=== PATIENT | female | born 1970 | race Caucasian/White ===

== ENCOUNTER 2018-09-18 14:33 | Emergency (ER) | payer BC, SELFPAY ==
[2018-09-18] MEDS ORDERED: NA CHLORIDE 0.9% 1,000 ML ONE (15:31)
[2018-09-18] MEDS ORDERED: MORPHINE 4 MG/ML SYR ONE ×2 (15:31→16:18)
[2018-09-18] MEDS ORDERED: ONDANSETRON 4 MG/2 ML VIAL ONE (15:31)
[2018-09-18 16:02] LABS: Absolute Lymphocytes (CBC) 2.4 K/uL (0.7-4.9); Absolute Monocytes 0.6 K/uL (0.1-1.3); Absolute Neutrophil 5.5 K/uL (1.8-8.0); Basophils % 0.6 % (0-1.3); Eosinophils % 2.3 % (0-4.4); Hematocrit 47.1 % (36.0-45.0); Lymphocytes % 27.5 % (15.3-44.8); MPV 8.6 fL (7.6-11.3); Monocytes % 7.3 % (3.3-12.3); RBC Red Blood Cell Count 5.12 M/uL (3.86-4.86)
[2018-09-18] MEDS ORDERED: PROMETHAZINE 25 MG/ML VIAL ONE ×2 (16:20→17:16)
[2018-09-18] MEDS ORDERED: FENTANYL CITR 100 MCG/2 ML ONE (16:21)
[2018-09-18 16:24] LABS: ALT/SGPT 46 U/L (12-78); AST/SGOT 31 U/L (15-37); Albumin 4.4 g/dL (3.4-5.0); Alkaline Phosphatase 84 U/L (45-117); BUN Blood Urea Nitrogen 15 mg/dL (7-18); Bicarbonate 21 mmol/L (21-32); Bilirubin Direct < 0.1 mg/dL (0-0.2); Bilirubin Total 0.2 mg/dL (0.2-1.0); Glucose Level 121 mg/dL (74-106); Lipase 215 U/L (73-393); Potassium 4.1 mmol/L (3.5-5.1); Protein, Total 8.1 g/dL (6.4-8.2); Sodium Level 140 mmol/L (136-145)
[2018-09-18 17:10] LABS: Urine Specific Gravity >1.030 (1.005-1.030)
[2018-09-18 17:11] LABS: Urine Blood NEGATIVE (NEG); Urine Glucose NEGATIVE (NEG); Urine Protein TRACE (NEG)
--- NOTE | 2018-09-18 17:14 | RAD REPORT ---
EXAM DESCRIPTION: CTAbdomen Pelvis W Contrast - 09/18/2018 4:55 pm CLINICAL HISTORY: Abdominal pain. iv contrast only;Abd pain COMPARISON: <Comparisons> TECHNIQUE: Biphasic CT imaging of the abdomen and pelvis was performed with 100 ml non-ionic IV cont rast. All CT scans are performed using dose optimization technique as appropriate and may include automated exposure control or mA/KV adjustment according to patient size. FINDINGS: The lung bases are clear. Mild diffuse fatty liver. The spleen, pancreas, adrenal glands and kidneys are within normal limits. Benign left renal cysts. No bowel obstruction, free air, free fluid or abscess. Appendectomy. No evidence of significant lym phadenopathy. No suspicious bony findings. IMPRESSION: No acute intra-abdominal or pelvic finding.
[2018-09-18] MEDS ORDERED: FAMOTIDINE 20 MG/2 ML VIAL IV ONE (17:16)
--- NOTE | 2018-09-18 18:00 | ER ---
Nurse's Notes [facility] Name: Ines Crabtree Age: 48 yrs Sex: Female : 1970 Arrival Date: 09/18/2018 Time: 14:37 Bed 23 Private MD: Diagnosis: Generalized abdominal pain Presentation: 09/18 14:47 Presenting complaint: N/D, mid back pain, and abdominal pain 10/10 since this morning. hb Transition of care: patient was not received from another setting of care. Onset of symptoms was September 18, 2018. Risk Assessment: Do you want to hurt yourself or someone else? Patient reports no desire to harm self or others. Care prior to arrival: None. 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 - Social history:: Smoking status: Patient/guardian denies using tobacco. - Ebola Screening: : No symptoms or risks identified at this time. Screenin:10 Abuse screen: Denies threats or abuse. Denies injuries from another. Nutritional sg screening: No deficits noted. Tuberculosis screening: No symptoms or risk factors identified. Never had TB. Fall Risk None identified. Assessment: 14:55 General: Appears in no apparent distress. well groomed, well developed, well nourished, sg Behavior is calm, cooperative, appropriate for age. Pain: Complains of pain in left mid back, right mid back and epigastric area Pain currently is 10 out of 10 on a pain scale. at worst was 10 out of 10 on a pain scale. Quality of pain is described as aching, sharp, stabbing, throbbing. Neuro: Level of Consciousness is awake, alert, obeys commands, Oriented to person, place, time, situation, Acls Specialist are equal bilaterally Moves all extremities. Full function Gait is steady, Facial symmetry appears normal, Pupils are PERRLA. Cardiovascular: Capillary refill is brisk in bilateral fingers Patient's skin is warm and dry. Chest pain is denied. Respiratory: Airway is patent Respiratory effort is even, unlabored, Respiratory pattern is regular, symmetrical. GI: Abdomen is round non-distended, Bowel sounds present X 4 quads. Abd is soft X 4 quads Abdomen is tender to palpation in epigastric area, right upper quadrant and left upper quadrant. : No signs and/or symptoms were reported regarding the genitourinary system. EENT: No signs and/or symptoms were reported regarding the EENT system. Derm: Skin is pink, warm \\T\\ dry. Musculoskeletal: No signs and/or symptoms reported regarding the musculoskeletal system. 15:00 Reassessment: Patient appears in no apparent distress at this time. Patient is alert, sg oriented x 3, equal unlabored respirations, skin warm/dry/pink. Patient states symptoms have not improved. 16:01 Reassessment: Patient appears in no apparent distress at this time. reports back pain sg feels better, but continues to have abd pain, Ernie COMMERCIAL SINGER notified. 17:57 Reassessment: Patient appears in no apparent distress at this time. Patient and/or sg family updated on plan of care and expected duration. Pain level reassessed. pt reports pain has decreased from a 10/10 to a 9/10 at this time, pt reports having pain still in the epigastric area, requesting a list of specialist because " we arent from around here.". 18:50 Reassessment: Patient appears in no apparent distress at this time. Patient and/or sg family updated on plan of care and expected duration. Pain level reassessed. Patient is alert, oriented x 3, equal unlabored respirations, skin warm/dry/pink. Patient states feeling better. Patient states symptoms have improved. Vital Signs: 14:49 BP 224 / 113; Pulse 100; Resp 18; Temp 97.9; Pulse Ox 100% on R/A; Weight 99.79 kg; hb Height 5 ft. 8 in. (172.72 cm); Pain 10/10; 17:56 BP 184 / 109; Pulse 77; Resp 16; Temp 98.3(O); Pulse Ox 98% ; lt1 18:50 BP 172 / 88; Pulse 72; Resp 16; Temp 98.3; Pulse Ox 99% on R/A; Pain 4/10; sg 14:49 Body Mass Index 33.45 (99.79 kg, 172.72 cm) hb ED Course: 14:37 Patient arrived in ED. rg4 14:49 Triage completed. hb 14:49 Arm band placed on. hb 14:55 Mathew Syed, ABDIRAHMAN is Primary Nurse. sg 14:59 Torri Leo FNP-C [facility]. kb 14:59 Macario Eli MD is Attending Physician. kb 15:29 Initial lab(s) drawn, by me, sent to lab. Inserted saline lock: 22 gauge in left lt1 antecubital area, using aseptic technique. 16:53 CT completed. Patient tolerated procedure well. Patient moved back from CT. 16:57 CT Abd/Pelvis - W/Contrast In Process Unspecified. EDMS Administered Medications: 15:30 Drug: NS 0.9% 1000 ml Route: IV; Rate: 1000 ml; Site: left antecubital; sg 15:30 Drug: Zofran 4 mg Route: IVP; Site: left antecubital; sg 16:00 Follow up: Response: No adverse reaction; Nausea is increased sg 15:30 Drug: morphine 4 mg Route: IVP; Site: left antecubital; sg 16:00 Follow up: Response: No adverse reaction; Pain is unchanged, physician notified sg 16:05 CANCELLED (Other Intervention Used): morphine 4 mg IVP once kb 16:22 Drug: Phenergan 12.5 mg Route: IVP; Site: left antecubital; sg 17:00 Follow up: Response: No adverse reaction; Nausea unchanged sg 16:22 Drug: fentaNYL (PF) 50 mcg Route: IVP; Site: left antecubital; ss 17:08 Follow up: Response: No adverse reaction; Pain is unchanged, physician notified; sg Wheezing increased; pt appears more relaxed, and is not pacing in the room and is no longer [facility] 17:[facility] Drug: Pepcid 20 mg Route: IVP; Site: left antecubital; sg 19:04 Follow up: Response: No adverse reaction sg 17:00 Drug: Phenergan 12.5 mg Route: IVP; Site: left antecubital; sg 18:52 Follow up: Response: No adverse reaction; Nausea is decreased sg 17:56 Drug: TORadol 30 mg Route: IVP; Site: left antecubital; sg 18:23 Follow up: Response: No adverse reaction; Pain is decreased sg 17:56 Drug: Bentyl 20 mg Route: PO; sg 18:23 Follow up: Response: No adverse reaction sg 18:23 Drug: Demerol 25 mg Route: IVP; Site: left antecubital; sg 18:50 Follow up: Response: No adverse reaction; Pain is decreased sg Intake: Outcome: 17:59 Discharge ordered by MD. gagnon 18:59 Patient left the ED. bd Signatures: Dispatcher [employer] EDMS Torri Leo, RYLEY COMMERCIAL SINGER-Zayra Jason Steven, RN RN sg Jones, Susan sj Smirch, Shelby, RN RN ss Baxter, Heather, RN RN hb Garcia, Rubi 4 Celia Nguyễn 1 Corrections: (The following items were deleted from the chart) 16:54 16:28 Radiology exam delayed due to test not completed at this time. sj sj
--- NOTE | 2018-09-18 18:00 | EDPHYS ---
Physician Documentation [facility] Name: Ines Crabtree Age: 48 yrs Sex: Female : 1970 Arrival Date: 09/18/2018 Time: 14:37 Bed 23 Private MD: ED Physician Macario Eli HPI: 09/18 15:13 This 48 yrs old Female presents to ER via Ambulatory with complaints of kb Abdominal Pain, Flank Pain, Back Pain. 15:13 The patient presents with abdominal pain that is diffuse. Onset: The symptoms/episode kb began/occurred today. The symptoms radiate to both flanks. Associated signs and symptoms: Pertinent positives: nausea and vomiting, Pertinent negatives: fever. The symptoms are described as constant, sharp. Modifying factors: The symptoms are alleviated by nothing, the symptoms are aggravated by nothing. Severity of pain: At its worst the pain was moderate severe in the emergency department the pain is unchanged. The patient has not experienced similar symptoms in the past. The patient has not recently seen a physician. 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 - Social history:: Smoking status: Patient/guardian denies using tobacco. - Ebola Screening: : No symptoms or risks identified at this time. ROS: 15:12 Constitutional: Negative for fever, chills, and weight loss, Neck: Negative for injury, kb pain, and swelling, Cardiovascular: Negative for chest pain, palpitations, and edema, Respiratory: Negative for shortness of breath, cough, wheezing, and pleuritic chest pain, : Negative for injury, bleeding, discharge, and swelling, MS/Extremity: Negative for injury and deformity, Skin: Negative for injury, rash, and discoloration, Neuro: Negative for headache, weakness, numbness, tingling, and seizure. 15:12 Abdomen/GI: Positive for abdominal pain, nausea and vomiting, Negative for diarrhea, constipation. 15:12 Back: Positive for flank pain, bilaterally. Exam: 15:11 Constitutional: This is a well developed, well nourished patient who is awake, alert, kb and in no acute distress. Head/Face: Normocephalic, atraumatic. Chest/axilla: Normal chest wall appearance and motion. Nontender with no deformity. No lesions are appreciated. Cardiovascular: Regular rate and rhythm with a normal S1 and S2. No gallops, murmurs, or rubs. Normal PMI, no JVD. No pulse deficits. Respiratory: Lungs have equal breath sounds bilaterally, clear to auscultation and percussion. No rales, rhonchi or wheezes noted. No increased work of breathing, no retractions or nasal flaring. Skin: Warm, dry with normal turgor. Normal color with no rashes, no lesions, and no evidence of cellulitis. MS/ Extremity: Pulses equal, no cyanosis. Neurovascular intact. Full, normal range of motion. Neuro: Awake and alert, GCS 15, oriented to person, place, time, and situation. Cranial nerves II-XII grossly intact. Motor strength 5/5 in all extremities. Sensory grossly intact. Cerebellar exam normal. Normal gait. Vital Signs: 14:49 BP 224 / 113; Pulse 100; Resp 18; Temp 97.9; Pulse Ox 100% on R/A; Weight 99.79 kg; hb Height 5 ft. 8 in. (172.72 cm); Pain 10/10; 17:56 BP 184 / 109; Pulse 77; Resp 16; Temp 98.3(O); Pulse Ox 98% ; lt1 18:50 BP 172 / 88; Pulse 72; Resp 16; Temp 98.3; Pulse Ox 99% on R/A; Pain 4/10; sg 14:49 Body Mass Index 33.45 (99.79 kg, 172.72 cm) hb MDM: 14:59 Patient medically screened. kb 15:11 Data reviewed: vital signs, nurses notes. Data interpreted: Pulse oximetry: on room air kb is 100 %. Interpretation: normal. 17:58 Counseling: I had a detailed discussion with the patient and/or guardian regarding: the kb historical points, exam findings, and any diagnostic results supporting the discharge/admit diagnosis, lab results, radiology results, the need for outpatient follow up, a family practitioner, a melangeur operator, to return to the emergency department if symptoms worsen or persist or if there are any questions or concerns that arise at home. 09/18 15:09 Order name: Basic Metabolic Panel; Complete Time: 16:24 kb 09/18 15:09 Order name: CBC with Diff; Complete Time: 16:06 kb 09/18 15:09 Order name: Hepatic Function; Complete Time: 16:24 kb 09/18 15:09 Order name: Lipase; Complete Time: 16:24 kb 09/18 15:12 Order name: Urine Dipstick--Ancillary (enter results); Complete Time: 17:14 bd 09/18 15:12 Order name: Urine --Ancillary (enter results); Complete Time: 17:14 bd 09/18 16:25 Order name: CT Abd/Pelvis - W/Contrast; Complete Time: 17:16 kb 09/18 15:09 Order name: IV Saline Lock; Complete Time: 15:12 kb 09/18 15:09 Order name: Labs collected and sent; Complete Time: 15:12 kb 09/18 15:09 Order name: Urine Dipstick-Ancillary (obtain specimen); Complete Time: 15:30 kb Administered Medications: 15:30 Drug: NS 0.9% 1000 ml Route: IV; Rate: 1000 ml; Site: left antecubital; sg 15:30 Drug: Zofran 4 mg Route: IVP; Site: left antecubital; sg 16:00 Follow up: Response: No adverse reaction; Nausea is increased sg 15:30 Drug: morphine 4 mg Route: IVP; Site: left antecubital; sg 16:00 Follow up: Response: No adverse reaction; Pain is unchanged, physician notified sg 16:05 CANCELLED (Other Intervention Used): morphine 4 mg IVP once kb 16:22 Drug: Phenergan 12.5 mg Route: IVP; Site: left antecubital; sg 17:00 Follow up: Response: No adverse reaction; Nausea unchanged sg 16:22 Drug: fentaNYL (PF) 50 mcg Route: IVP; Site: left antecubital; ss 17:08 Follow up: Response: No adverse reaction; Pain is unchanged, physician notified; sg Wheezing increased; pt appears more relaxed, and is not pacing in the room and is no longer making loud moaning noises at [facility] 17:00 Drug: Pepcid 20 mg Route: IVP; Site: left antecubital; sg 19:04 Follow up: Response: No adverse reaction sg 17:00 Drug: Phenergan 12.5 mg Route: IVP; Site: left antecubital; sg 18:52 Follow up: Response: No adverse reaction; Nausea is decreased sg 17:56 Drug: TORadol 30 mg Route: IVP; Site: left antecubital; sg 18:23 Follow up: Response: No adverse reaction; Pain is decreased sg 17:56 Drug: Bentyl 20 mg Route: PO; sg 18:23 Follow up: Response: No adverse reaction sg 18:23 Drug: Demerol 25 mg Route: IVP; Site: left antecubital; sg 18:50 Follow up: Response: No adverse reaction; Pain is decreased sg Disposition: 09/19 07:15 Co-signature as Attending Physician, Macario Eli MD I agree with the assessment and eyal plan of care. Disposition: 09/18/18 17:59 Discharged to Home. Impression: Generalized abdominal pain. - Condition is Stable. - Discharge Instructions: Abdominal Pain, Adult, [id number]. - Prescriptions for Bentyl 20 mg Oral Tablet - take 1 tablet by ORAL route every 6 hours As needed; 20 tablet. Tramadol 50 mg Oral Tablet - take 1 tablet by ORAL route every 8 hours as needed; 12 tablet. promethazine 25 mg Oral Tablet - take 1 tablet by ORAL route every 6 hours As needed; 20 tablet. - Medication Reconciliation Form, Thank You Letter, Antibiotic Education, Prescription Opioid Use, Work release form, Family Work Release form. - Follow up: Emergency Department; When: As needed; Reason: Worsening of condition. Follow up: Private Physician; When: 2 - 3 days; Reason: Recheck today's complaints, Continuance of care, Re-evaluation by your physician. Signatures: Dispatcher [employer] EDMN Torri Leo, GÉNESIS-C CIRCUS PERFORMER-Zayra Jason Steven, RN RN sg Anderson, Corey, MD MD cha Smirch, Shelby, RN RN Eliane Briones RN RN Corrections: (The following items were deleted from the chart) 09/18 16:05 16:02 morphine 4 mg IVP once ordered. kb kb 18:59 17:59 09/18/2018 17:59 Discharged to Home. Impression: Generalized abdominal pain. bd Condition is Stable. Forms are Medication Reconciliation Form, Thank You Letter, Antibiotic Education, Prescription Opioid Use. Follow up: Emergency Department; When: As needed; Reason: Worsening of condition. Follow up: Private Physician; When: 2 - 3 days; Reason: Recheck today's complaints, Continuance of care, Re-evaluation by your physician. kb
[2018-09-18] MEDS ORDERED: KETOROLAC 30 MG/ML INJ ONE (18:06)
[2018-09-18] MEDS ORDERED: DICYCLOMINE HCL 10 MG CAP ONE (18:06)
[2018-09-18] MEDS ORDERED: MEPERIDINE HCL 25 MG/0.5 ML ONE (18:35)
== END 2018-09-18 18:59 | disposition home or self-care (01) ==
LOC: ER 14:33
DX: R10.9 Unspecified abdominal pain (principal); R11.2 Nausea with vomiting, unspecified; I10 Essential (primary) hypertension
CPT/HCPCS: 36415; 74177; 80048; 80076; 81003; 81025; 83690; 85025; 96374; 96375; 99284; J2175; J2405; J2550; J3010; J7030; Q9967

== ENCOUNTER 2022-09-18 23:22 | Emergency (ER) | payer BC ==
[2022-09-18 23:57] LABS: Absolute Lymphocytes (CBC) 2.6 K/uL (0.7-4.9); Hematocrit 41.7 % (36.0-45.0); Lymphocytes % 33.1 % (15.3-44.8); MCV 92.6 fL (80-100); MPV 7.4 fL (7.6-11.3)
[2022-09-18] MEDS ORDERED: LIDOCAINE 1% MPF 5 ML VIAL ONE (23:59)
[2022-09-19] MEDS ORDERED: LIDOCAINE 1% MPF 5 ML VIAL ONE (00:01)
[2022-09-19] MEDS ORDERED: TETANUS & DIPHTHERIA TOX,ADULT 0.5 ML VIAL ONE ×2 (00:01)
[2022-09-19 00:06] LABS: Protime INR 0.95
[2022-09-19 00:22] LABS: ALT/SGPT 50 U/L (13-56); AST/SGOT 23 U/L (15-37); Alkaline Phosphatase 84 U/L (45-117); BUN Blood Urea Nitrogen 12 mg/dL (7-18); Bicarbonate 23 mEq/L (21-32); Bilirubin Total 0.2 mg/dL (0.2-1.0); Creatine Phosphokinase 170 U/L (26-192); Glomerular Filtration Rate 69 ml/min (=/>90); Glucose Level 95 mg/dL (74-106); Potassium 3.7 mEq/L (3.5-5.1); Protein, Total 7.5 g/dL (6.4-8.2); Sodium Level 133 mEq/L (136-145)
[2022-09-19 00:44] LABS: Bilirubin Direct < 0.1 mg/dL (0-0.2); Bilirubin Indirect, Calculated ND mg/dL (0.2-0.8)
[2022-09-19 01:34] LABS: Barbiturates NEGATIVE (NEGATIVE); Benzodiazepines NEGATIVE (NEGATIVE); Cocaine NEGATIVE (NEGATIVE); METHAMPHETAM NEGATIVE (NEGATIVE); Methadone NEGATIVE (NEGATIVE); Opiates NEGATIVE (NEGATIVE); Phencyclidine NEGATIVE (NEGATIVE); THC Cannibis NEGATIVE (NEGATIVE)
[2022-09-19 01:35] LABS: Specific Gravity 1.005 (1.005-1.030); Urine Bilirubin NEGATIVE (Negative); Urine Blood Negative (Negative); Urine Clarity Clear (Clear); Urine Color Colorless (Yellow); Urine Glucose NEGATIVE (Negative); Urine Protein NEGATIVE (Negative); Urine Urobilinogen Normal (Normal)
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
--- NOTE | 2022-09-19 06:49 | ER ---
Nurse's Notes [facility] Name: Ines Crabtree Age: 52 yrs Sex: Female : 1970 Arrival Date: 09/18/2022 Time: 23:22 Bed 8 Private MD: Diagnosis: Intentional self-harm by knife;Intentional overdose of Ambien Presentation: 09/18 23:28 Chief complaint: EMS states: toned out for possible OD with zolpidem ER 12.5 mg, family aa9 states she has been drinking about 6 pK of bud light. pt aggressive en route, ripped out IV. lac to the left FA, razor blade found next to lethargic pt in bathtub, previous attempt of suicide reported. Coronavirus screen:. Ebola Screen: No symptoms or risks identified at this time. Initial Sepsis Screen: Does the patient meet any 2 criteria? No. Patient's initial sepsis screen is negative. Does the patient have a suspected source of infection? No. Patient's initial sepsis screen is negative. Risk Assessment: Do you want to hurt yourself or someone else? Patient reports desire/thoughts of hurting themselves or someone else. Provider notified. Onset of symptoms was September 18, 2022. Care prior to arrival: Bleeding of injury controlled. Injury dressed. Activity prior to arrival: lethargic. 23:28 Method Of Arrival: EMS: [facility] aa9 23:28 Acuity: NISHANT 2 aa9 Triage Assessment: 23:32 General: Appears uncomfortable, obese, unkempt, Behavior is drowsy, Smells of alcohol. aa9 Neuro: Level of Consciousness is lethargic. Cardiovascular:. Respiratory: Airway is patent Respiratory effort is even, unlabored. GI: No signs and/or symptoms were reported involving the gastrointestinal system. : No signs and/or symptoms were reported regarding the genitourinary system. Derm: Skin is healthy with good turgor, Skin is pale, Skin temperature is cool Wound noted left FA Wound is linear lac to L FA. Musculoskeletal: No signs and/or symptoms reported regarding the musculoskeletal system. Historical: - Allergies: 23:32 Bactrim; aa9 - Home Meds: 23:32 Unable to obtain [Active]; aa9 - PMHx: 23:32 Hypertension; ulcerative colitis; aa9 - PSHx: 23:32 Unable to Obtain; aa9 - Immunization history:: Adult Immunizations unknown. - Social history:: Smoking status: unknown. - Family history:: not pertinent. Screenin:45 Nutritional screening: No deficits noted. Tuberculosis screening: No symptoms or risk aa9 factors identified. 09/19 09:19 [facility] ED Fall Risk Assessment (Adult) History of falling in the last 3 months, ph including since admission No falls in past 3 months (0 pts) Confusion or Disorientation Yes (5 pts) Intoxicated or Sedated Yes (3 pts) Impaired Gait Yes (1 pt) Mobility Assist Device Used No (0 pt) Altered Elimination No (0 pt) Score/Fall Risk Level 3 or more points = High Risk Oriented to surroundings, Educated pt \\T\\ family on fall prevention, incl call for assistance when getting out of bed, Used ambulatory aids as needed (educated on \\T\\ assisted with). Abuse screen: Denies threats or abuse. Denies injuries from another. Assessment: 09/18 23:41 Reassessment: contacted poison control , Ranjana stated, "you can aa9 expect confusion, un coordination for the night. no major changes in lab work, possible respiratory depression, recommend OD work up, CBC, CMP, if applicable, pt should be monitored overnight.". 23:41 Derm: Wound noted R FA Wound is superficial linear abrasion on inner FA. aa9 09/19 01:00 General: Appears uncomfortable, obese, unkempt, Behavior is restless. aa9 01:00 Respiratory: Airway is patent Respiratory effort is even, unlabored. aa9 03:00 General: Appears uncomfortable, obese, unkempt, Behavior is restless. aa9 03:00 Respiratory: Airway is patent Respiratory effort is even, unlabored. aa9 05:00 Reassessment: Patient appears in no apparent distress at this time. pt eyes closed,left aa9 side laying in bed, breathing equal and regular. 05:50 General: Appears uncomfortable, obese, unkempt, Behavior is calm, cooperative, upon aa9 suicide assessment, pt nodded when asked if they wanted to kill themselves tonight. pt states, "I have never tried to kill myself before." . Neuro: Level of Consciousness is awake, alert, obeys commands, Oriented to person, place, time, situation. 07:35 Reassessment: Patient appears in no apparent distress at this time. Report given to wendi Cedeno at [facility]. 07:44 Reassessment: Patient appears in no apparent distress at this time. Pt asleep w/ equal ph and unlabored respirations, nurse to nurse report given to Brittany at [facility]. 08:39 Reassessment: Transfer form signed by pt, pt remains drowsy, asked, " who found me?". 09:20 Reassessment: [facility] at bedside, pt transferred to [facility]. Psych: 01:08 [place] Suicide Severity Screening: "In the past month, have you actually had any aa9 thoughts of killing yourself?" Patient responds "yes." Based off the client's response additional [place] suicide severity screening questions to be further documented on paper forms. pt unable to respond to screening due to slurred speech from Ambien OD, pt lethargic, family states, "this is not the first time she has tried to kill herself.". Subjective: Patient's mood is irritable, Having thoughts of suicide. Plan for suicide is cutting pablo wrists with razor blade. Objective: Patient is aggressive, irritable, Speech is slurred, Patient has mutilated themselves by cutting pablo FA with razors blade. Interventions: Removed personal items and placed in bag. Searched person for dangerous items. Urine collected and sent for urine drug test. Patient reassessed during use of restraints. Patient is physically safe. Safety Checks: Personal items have been removed. Pt has been placed in a hallway bed/chair. No visitors are present at this time. Patient uses 6 pack of beer. 09:21 [place] Suicide Severity Screening: In the past month, have you wished you were ph or wished you could go to sleep and not wake up? Patient responds "yes." "In the past month, have you actually had any thoughts of killing yourself?" Patient responds "yes." "In your lifetime, have you ever done anything, started to do anything, or prepared to do anything to end your life?" Patient responds "yes.". Commitment: Patient will be a voluntary commitment. Vital Signs: 09/18 23:28 BP 119 / 83; Pulse 94; Resp 16 S; Pulse Ox 95% on 2 lpm NC; aa9 09/19 02:00 BP 145 / 90; Pulse 98; Resp 18; Temp 97.8(O); Pulse Ox 96% on R/A; aa9 ED Course: 09/18 23:24 Patient arrived in ED. ds4 23:24 Roderick Desir MD is Attending Physician. rt 23:28 Clarice Luke, RN is Primary Nurse. aa9 23:32 Triage completed. aa9 23:45 Patient has correct armband on for positive identification. Bed in low position. Side aa9 rails up X2. Pulse ox on. NIBP on. 09/19 00:18 Missed attempt(s): 22 gauge in left hand. Bleeding controlled, band aid applied, aa9 catheter tip intact. 00:24 Missed attempt(s): 20 gauge in right forearm. Bleeding controlled, band aid applied, aa9 catheter tip intact. 00:25 Acetaminophen Sent. aa9 00:25 Basic Metabolic Panel Sent. aa9 00:25 CBC with Diff Sent. aa9 00:25 ETOH Level Sent. aa9 00:25 Hepatic Function Sent. aa9 01:02 Straight cath inserted, using sterile technique, 16 Fr. Specimen obtained. Returned aa9 clear yellow urine. Patient tolerated well. 01:14 Urinalysis w/ reflexes Sent. aa9 01:14 Urine Drug Screen Sent. aa9 03:00 Assist provider with laceration repair on palmar aspect of right forearm using sutures. aa9 Set up tray. Performed by Roderick Desir MD Dressed with Kerlix, Patient tolerated well. 06:02 Inserted saline lock: 20 gauge in right antecubital area, using aseptic technique. rv1 Blood collected. 06:30 Alcohol Level Sent. as7 07:04 Attending Physician role handed off by Roderick Desir MD rn 07:04 Wilfrid Valdes MD is Attending Physician. rn 09:20 Arm band placed on. ph 09:23 IV discontinued, intact, bleeding controlled, No redness/swelling at site. Pressure ph dressing applied. Administered Medications: 00:30 Drug: Tetanus-Diphtheria Toxoid IM Adult 0.5 ml {Pediatric Dental Assistant: [employer]. Exp: aa9 10/02/2023. Lot #: [id number]. } Route: IM; Site: right deltoid; 03:00 Drug: Lidocaine Infiltration (1 %) 5 ml {Note: by Karlee HART .} Volume: 5 ml; Route: aa9 Infiltration; Medication: 09:22 Vaccine Information Statement (VIS) provided today. Questions and/or concerns ph addressed. VIS edition date: November 27, 2020. Outcome: 06:48 ER care complete, transfer ordered by . rt 09:22 Transferred by [facility]. Transfer form completed. ph 09:22 Condition: stable 09:22 Instructed on the need for transfer. 09:23 Patient left the ED. ph Signatures: Wilfrid Valdes MD MD rn Swanson, Donovan ds4 Michelle Nava RN RN Clarice Luke RN RN aa9 Roderick Desir MD MD rt Seema Abbasi 1 Amanda Castro as7
[2022-09-19 09:54] VITALS: TEMP 97.8
[2022-09-19 09:56] VITALS: BP 119/83; O2SAT 95
--- NOTE | 2022-09-21 07:12 | EKG ---
Test Date: 2022-09-19 Test Time: 00:03:53 Instrument Checker: EDSON MEASUREMENT RESULTS: Intervals: Rate: 84 ME: 138 QRSD: 86 QT: 414 QTc: 489 [place]: P: 54 ME: 138 QRS: 45 T: 47 INTERPRETIVE STATEMENTS: Normal sinus rhythm Nonspecific T wave abnormality Prolonged QT Abnormal ECG Compared to ECG 01/29/2017 23:42:30 T-wave abnormality now present Prolonged QT interval now present Sinus tachycardia no longer present Electronically Signed On 09-21-22 07:07:20 CDT by Davon Rolon
== END 2022-09-19 09:23 ==
LOC: ER 23:22
PROC: 0HQDXZZ Repair Right Lower Arm Skin, External Approach (ICD-10-PCS; principal; 2022-09-19)
DX: T42.6X2A Poisoning by other antiepileptic and sedative-hypnotic drugs, intentional self-harm, initial encounter (principal); S51.811A Laceration without foreign body of right forearm, initial encounter; X78.1XXA Intentional self-harm by knife, initial encounter; Z23 Encounter for immunization; Z88.1 Allergy status to other antibiotic agents
CPT/HCPCS: 93005; 85025; 80048; 36415; 82550; 85610; 80076; 85730; 81003; 80307; 90471; 51702; 99285; 12001; G0480 ×4; 90714; J2001

== ENCOUNTER 2023-12-14 11:37 | Day surgery (SDC) | payer BC ==
[2023-12-12 11:22] LABS: Absolute Basophils 0.1 K/uL (0-0.5); Absolute Eosinophils 0.2 K/uL (0-0.5); Absolute Lymphocytes (CBC) 1.9 K/uL (0.7-4.9); Absolute Monocytes 0.7 K/uL (0.1-1.3); Absolute Neutrophil 5.5 K/uL (1.8-8.0); Basophils % 1.3 % (0-1.3); Eosinophils % 2.5 % (0-4.4); Hematocrit 46.1 % (36.0-45.0); Hemoglobin 15.4 g/dL (12.0-15.0); Lymphocytes % 22.8 % (15.3-44.8); MCH 32.3 pg (27.0-35.0); MCHC 33.5 g/dL (32.0-36.0); MCV 96.6 fL (80-100); MPV 8.1 fL (7.6-11.3); Neutrophils % 65.4 % (41.7-73.7); Platelets 333 thou/uL (152-406); RBC Red Blood Cell Count 4.77 M/uL (3.86-4.86); Red Cell Distribution Width 13.6 % (12.1-15.2)
[2023-12-12 11:37] LABS: Anion Gap 11.8 mEq/L (5.0-15.0); Potassium 3.8 mEq/L (3.5-5.1)
--- NOTE | 2023-12-12 17:44 | EKG ---
Test Date: 2023-12-12 Test Time: 11:09:29 Heel Sewer: VIVIAN MEASUREMENT RESULTS: Intervals: Rate: 76 PA: 126 QRSD: 84 QT: 400 QTc: 450 [place]: P: 68 PA: 126 QRS: 73 T: 60 INTERPRETIVE STATEMENTS: Normal sinus rhythm Normal ECG Compared to ECG 09/19/2022 00:03:53 T-wave abnormality no longer present Prolonged QT interval no longer present Electronically Signed On 12-12-23 17:43:52 CDT by Zachary Suarez
[2023-12-14] MEDS: Ringers Lactate 1,000 ML IV ONE (12:05)
[2023-12-14] MEDS ORDERED: LIDOCAINE 1% MPF 5 ML VIAL ONE (12:12)
[2023-12-14] MEDS ORDERED: propofoL 200 MG/20 ML VIAL IV ONE (12:12)
[2023-12-14] MEDS: MIDAZOLAM HCL 2 MG/2 ML INJ ONE (12:23)
[2023-12-14 15:16] VITALS: TEMP 97.3; O2SAT 97
[2023-12-14 15:17] VITALS: BP 121/87
== END 2023-12-14 14:00 | disposition home or self-care (01) ==
LOC: OR 11:37
PROVIDERS: ATTEND Surgery
PROC: 0DB18ZX Excision of Upper Esophagus, Via Natural or Artificial Opening Endoscopic, Diagnostic (ICD-10-PCS; 2023-12-14)
PROC: 0DB48ZX Excision of Esophagogastric Junction, Via Natural or Artificial Opening Endoscopic, Diagnostic (ICD-10-PCS; 2023-12-14)
PROC: 0DB68ZX Excision of Stomach, Via Natural or Artificial Opening Endoscopic, Diagnostic (ICD-10-PCS; 2023-12-14)
PROC: 0DB38ZX Excision of Lower Esophagus, Via Natural or Artificial Opening Endoscopic, Diagnostic (ICD-10-PCS; 2023-12-14)
PROC: 0DBN8ZX Excision of Sigmoid Colon, Via Natural or Artificial Opening Endoscopic, Diagnostic (ICD-10-PCS; principal; 2023-12-14 13:00)
PROC: 0DB98ZX Excision of Duodenum, Via Natural or Artificial Opening Endoscopic, Diagnostic (ICD-10-PCS; 2023-12-14 13:00)
DX: Z12.11 Encounter for screening for malignant neoplasm of colon (principal); Z86.010 Personal history of colon polyps; K62.89 Other specified diseases of anus and rectum; R10.13 Epigastric pain; K21.9 Gastro-esophageal reflux disease without esophagitis; K29.50 Unspecified chronic gastritis without bleeding; K44.9 Diaphragmatic hernia without obstruction or gangrene; K29.80 Duodenitis without bleeding
CPT/HCPCS: 45380; 43239; 93005; 85025; 80048; 36415; 88312; 88305; J2704; J2001; J2250; J7120